=== PATIENT | male | born 1990 | race Caucasian/White ===

== ENCOUNTER → 2019-10-18 11:11 | Outpatient (BNVA) | payer OTHER, SELFPAY | PROVIDERS: Family Provider Nurse Practitioner; PCP Nurse Practitioner; Visit Provider Nurse Practitioner Family | DX: J98.11 Atelectasis (principal); R05 Cough; J40 Bronchitis, not specified as acute or chronic | CPT/HCPCS: 71046; 87804 ==

== ENCOUNTER → 2021-08-30 16:18 | Outpatient (BNVA) | payer OTHER, SELFPAY | PROVIDERS: Family Provider Nurse Practitioner; PCP Nurse Practitioner; Visit Provider Nurse Practitioner Family | DX: Z11.52 Encounter for screening for COVID-19 (principal); R05.9 Cough, unspecified | CPT/HCPCS: 80053; 85007; 85025; 87635 ==